=== PATIENT | female | born 1965 | race Caucasian/White ===

== ENCOUNTER 2019-03-28 17:38 | Emergency (ER) | payer OTHER ==
[~2019-03-28] VITALS: Ht 167.6 cm; Wt 54.4 kg
[2019-03-28 18:26] LABS: ABSOLUTE EOSINOPHILS 0.4 thou/uL (0.0-0.7); ABSOLUTE LYMPHOCYTES 1.6 thou/uL (0.8-5.3); ABSOLUTE MONOCYTES 0.6 thou/uL (0.0-1.2); ABSOLUTE NEUTROPHILS 4.4 thou/uL (1.6-8.1); BASOPHILS 0.6 %; EOSINOPHILS 5.5 %; HEMATOCRIT 34.5 % (37.0-47.0); HEMOGLOBIN 11.5 gm/dL (12.0-15.0); LYMPHOCYTES 23.1 %; MCH 27.4 pg (26.0-34.0); MCHC 33.3 g/dL (28.0-37.0); MCV 82.2 fL (80.0-100.0); MONOCYTES 8.9 %; MPV 8.7 fl. (7.2-11.1); NUCLEATED RBCS 0 /100WBC; PLATELET COUNT* 318 thou/uL (150-400); POLYS 61.9 %; RDW-CV 15.7 % (10.5-14.5); WBC 7.1 thou/uL (4.0-11.0)
[2019-03-28 18:33] LABS: CALCIUM 8.2 mg/dL (8.5-10.1); POTASSIUM 3.4 mmol/L (3.5-5.1)
[2019-03-28 18:38] LABS: ALBUMIN 2.8 g/dL (3.4-5.0); TOTAL BILIRUBIN 0.1 mg/dL (<0.1-1.0); TOTAL PROTEIN 6.6 g/dL (6.4-8.2)
[2019-03-28] MEDS ORDERED: LIDODERM1 EACH TRANSDERM (19:26)
[2019-03-28] MEDS ORDERED: NORCO 5-325 TA1 EAC1 PO (19:26)
[2019-03-28 20:00] VITALS: BP 160/98
--- NOTE | 2019-03-29 09:43 | EKG ---
[place] [address] ELECTROCARDIOGRAM REPORT Name: RIK MOELLER Room: [facility]#: [id number] Admission: 03/28/19 Attend Phys: Discharge: 03/28/19 Date of : 69 Date of Service: 03/28/191758 Report #: [id number] THIS REPORT FOR: //name// [facility] ED Test Date: 2019-03-28 Test Time: 17:59:24 Pat Name: RIK MOELLER Department: Room: Gender: Costume Mistress: [facility] : 1965 Requested By: Dusty Santamaria Order Number: [id number] MD: Ramiro Blood Measurements Intervals [place] Rate: 82 P: 68 CT: 152 QRS: 66 QRSD: 81 T: 89 QT: 402 QTc: 470 Interpretive Statements Sinus rhythm Consider left ventricular hypertrophy Nonspecific T abnormalities, lateral leads No previous ECG available for comparison Electronically Signed On 03-29-2019 9:42:46 [employer]ABLE [employer] TECHNICIAN by Ramiro Blood [email or web address] <ELECTRONICALLY SIGNED> By: Ramiro Blood MD, [facility] 03/29/19 0942 1759 1759 Ramiro Blood MD, FAC /EPI
== END 2019-03-28 20:00 | disposition home or self-care (01) ==
LOC: M.ERS 17:38
PROVIDERS: Physician Assistant
DX: M94.0 Chondrocostal junction syndrome [Tietze] (principal); Z98.51 Tubal ligation status